=== PATIENT | female | born 1945 | race Two or more races ===

== ENCOUNTER 2024-03-30 13:08 | Emergency (ER) | payer OTHER, MEDICAID ==
[~2024-03-30] VITALS: Ht 162.6 cm; Wt 72.6 kg
[2024-03-30 13:50] LABS: BASOPHILS % (AUTO) 0.2 % (0.0-2.0); EOSINOPHILS # (AUTO) 0.1 K/uL (0.0-0.7); EOSINOPHILS % (AUTO) 1.2 % (0.0-7.0); HEMOGLOBIN 13.1 g/dL (10.9-14.3); LYMPHOCYTES # (AUTO) 0.8 K/uL (0.8-4.8); LYMPHOCYTES % (AUTO) 9.8 % (20.5-51.5); MEAN CORPUSCULAR HGB CONC 33 g/dL (32.3-35.6); MEAN CORPUSCULAR VOLUME 88.5 fL (75.5-95.3); MONOCYTES # (AUTO) 0.6 K/uL (0.1-1.30); MONOCYTES % (AUTO) 6.6 % (0.0-11.0); NEUTROPHILS # (AUTO) 6.9 K/uL (1.8-8.9); NEUTROPHILS % (AUTO) 82.2 % (38.5-71.5); PLATELET COUNT (AUTO) 216 K/uL (179-408); RED BLOOD CELL COUNT(AUTO) 4.52 MIL/uL (3.63-4.92); RED CELL DISTRIBUTION WIDTH 13.4 % (12.3-17.7); WHITE BLOOD COUNT (AUTO) 8.4 K/uL (3.8-11.8)
[2024-03-30 14:05] LABS: CALCIUM 8.5 mg/dL (8.5-10.1); CARBON DIOXIDE 24 mmol/L (21-32); CHLORIDE 101 mmol/L (98-107); CREATININE 0.8 mg/dL (0.6-1.3); GLUCOSE 119 mg/dL (74-106); POTASSIUM 3.8 mmol/L (3.5-5.1); SODIUM SERUM 136 mmol/L (136-145); UREA NITROGEN, BLOOD 11 mg/dL (7-18)
[2024-03-30 14:07] LABS: DIFFERENTIAL COMMENT 1
[2024-03-30 14:18] LABS: ALANINE AMINOTRANSFERASE 30 U/L (14-59); ALBUMIN 3.3 g/dL (3.4-5.0); ALKALINE PHOSPHATASE 95 U/L (50-136); ASPARTATE AMINOTRANSFERASE 24 U/L (15-37); BILIRUBIN,DIRECT 0.2 mg/dL (0.0-0.2); NT-PRO BNP 1193 pg/mL (0-125); TOTAL PROTEIN, SERUM 7.6 g/dL (6.4-8.2)
[2024-03-30] MEDS ORDERED: NITROGLYCERIN OINT 1 GM PACKET TP ONE (15:04)
[2024-03-30] MEDS ORDERED: BUMETANIDE 1 MG/4 ML VIAL ONE (15:04)
[2024-03-30] MEDS: BUMETANIDE 1 MG/4 ML VIAL IV ONE (15:20)
[2024-03-30] MEDS: NITROGLYCERIN OINT 1 GM PACKET TP ONE (15:20)
[2024-03-30] MEDS ORDERED: VALSARTAN 80 MG TABLET ONE (22:59)
[2024-03-30] MEDS ORDERED: ACETAMINOPHEN 325 MG TABLET ONE (22:59)
[2024-03-30 23:01] VITALS: BP 160/73
[2024-03-30] MEDS: VALSARTAN 80 MG TABLET PO ONE (23:01)
[2024-03-30] MEDS: ACETAMINOPHEN 325 MG TABLET PO ONE (23:01)
[2024-03-30 23:21] VITALS: O2SAT 99
== END 2024-03-31 00:57 | disposition short-term general hospital (02) ==
LOC: ER 13:08
DX: I50.9 Heart failure, unspecified (principal); Z20.822 Contact with and (suspected) exposure to COVID-19; Z88.1 Allergy status to other antibiotic agents; Z88.5 Allergy status to narcotic agent
CPT/HCPCS: 99291; 96374; 71045; 87426; 87804 ×2; 80076; 80048; 83880; 85025; 85379; 85730; 87040 ×2; 84484; 36415; 93005; 83605; J3490; A4606; A4663